=== PATIENT | male | born 2005 | race Caucasian/White ===

== ENCOUNTER 2024-03-14 19:53 | Emergency (ER) | payer OTHER, SELFPAY ==
[2024-03-14 19:54] VITALS: BP 140/82
[2024-03-14 20:03] VITALS: BP 143/92
[2024-03-14] MEDS: SOLU-MEDROL PF 125 MG IV (20:24)
[2024-03-14] MEDS: ADRENALIN 0.299999999999999989 MG IM (20:24)
[2024-03-14] MEDS: PEPCID 20 MG IV (20:24)
[2024-03-14 20:35] LABS: % Eosinophils 6.4 % (0-6); % Immature Granulocytes 0.2 % (0-0.5); % Lymphocytes 29.6 % (20.5-51.1); % Neutrophils 53.8 % (42.2-75.2); Absolute Basophils 0.1 10^3/uL (0-0.2); Absolute Eosinophils 0.6 10^3/uL (0-0.7); Absolute Lymphocytes 2.7 10^3/uL (1.2-3.4); Absolute Monocytes 0.8 10^3/uL (0.1-0.6); Absolute Neutrophils 4.9 10^3/uL (1.4-6.5); Hematocrit 40.7 % (39.0-52.0); Hemoglobin 14.4 g/dL (13.0-18.0); Mean Corp Hgb Conc. 35.4 g/dL (33.0-37.0); Mean Corpuscular Volume 82.1 fL (80.0-94.0); Mean Platelet Volume 13.2 fL (7.4-10.4); Nucleated Red Blood Cells % 0 % (-); Platelet Count 81 10^3/uL (130-400); Red Blood Cell Count 4.96 10^6/uL (4.70-6.10); Red Cell Dist. Width 12.6 % (11.5-14.5); White Blood Cell Count 9.1 10^3/uL (4.8-10.8)
--- NOTE | 2024-03-14 20:54 | ED.GENMED ---
History of Present Illness
General
Chief Complaint: Allergic Reaction
Source: patient
Exam Limitations: none
Time Seen by Provider: 03/14/24 20:12
Nursing documentation reviewed up to this point in time: agreed with
Travel History
Have you had any contact with someone who has COVID-19?: No
Do you have any symptoms of coronavirus? Fever > 100 degrees, chills, cough, shortness of breath, sore throat, loss of taste or smell, muscle aches, or headache?: No
History of Present Illness
History of Present Illness:
18-year-old male with no significant chronic medical issues presents to the emergency room for evaluation of allergic reaction. 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 He says that he had some benoit tonight and it unknowingly contained
some coconut. He says that shortly after ingestion (which was at around 6:15 PM) he began to have some pruritus, hives, swelling of his lips and sensation of swelling in his throat. He says he had an episode of vomiting has had some
nausea/epigastric discomfort since. He denies any shortness of breath or wheezing. He says that he took Benadryl 50 mg shortly after he realized he was having a reaction and symptoms have improved slightly but not resolved. Came to the emergency
room for assessment. He does have access to an EpiPen but did not administer.
Review of Systems
Review of Systems
All Other Systems: ROS reviewed and negative except as documented in HPI and ROS
EENT: Reports other (Throat swelling, lip swelling)
Respiratory: Denies cough or trouble breathing
Cardiac: Denies chest pain
ABD/GI: Reports abdominal pain, nausea and vomiting
: Denies flank pain
Musculoskeletal: Denies neck pain or back pain
Skin: Reports itching and rash
Neurological: Denies dizzy or headache
Phy Exam
Physical Exam
Physical Exam:
General: Awake, alert; no acute distress
Head: Normocephalic, atraumatic
Eyes: Conjunctiva normal; some slight periorbital edema
Throat: Airway intact, handling secretions, no tongue swelling, slight swelling of the upper lip, no uvular swelling, no stridor
Neck: Trachea midline
Lungs: Clear to auscultation bilaterally, no wheezing, rales, rhonchi
Heart: Regular rate and rhythm, no murmurs, gallops, or rubs
Abd: Soft, non distended, nontender
Neuro: No gross deficits
Skin: Occasional scattered hives
Extremities: Warm and well-perfused
Scores
Heart Failure Risk
Heart Failure Risk Score: Not Applicable
Heart Score for Chest Pain Patients
STEMI patient?: Not applicable
Withdrawal Assessment of Alcohol
Withdrawal Assessment Completed?: Not applicable
Course
Orders/Labs/Results
Orders:
Orders
03/14/24 20:13
Diphenhydramine [Benadryl] 25 mg IV NOW STA
EPINEPHrine PF [Adrenalin] 0.3 mg IM NOW STA
Famotidine [Pepcid] 20 mg IV NOW STA
MethylPREDNISolone PF [Solu-Medrol Pf] 125 mg IV NOW STA
03/14/24 20:23
Complete Blood Count/With Diff Urgent
Comprehensive Metabolic Panel Urgent
Abnormal Lab Results
03/14/24
20:23
Plt Count 81 L 10^3/uL
(130-400)
MPV 13.2 H fL
(7.4-10.4)
Absolute Monos (auto) 0.8 H 10^3/uL
(0.1-0.6)
Eosinophils % 6.4 H %
(0-6)
03/14/24 20:23
03/14/24 20:23
Vital Signs
Initial and Last Documented VS:
Initial Vital Signs
Temp Pulse Resp BP Pulse Ox
36.6 C 74 22 140/82 98
03/14/24 19:54 06/17/24 19:54 03/14/24 19:54 03/14/24 19:54 03/14/24 19:54
Last Documented Vital Signs
Temp Pulse Resp BP Pulse Ox
36.6 C 62 19 143/92 98
03/14/24 19:54 03/14/24 21:00 03/14/24 21:00 03/14/24 20:03 03/14/24 21:00
MDM/Problems Addressed
Differential Diagnosis Includes:
Anaphylaxis, angioedema
MDM/Problems Addressed:
18-year-old male presents for evaluation of allergic reaction after unknowingly ingesting coconut to which he has a known allergy. Took Benadryl prior to arrival which helped symptoms slightly. Ingestion occurred at 6:15 PM. Symptoms include
hives/pruritus, puffiness of the lips and eyes, sensation of throat swelling, GI symptoms. No wheezing or shortness of breath. Vital signs are normal. Exam as above. Will give IM epinephrine. Will treat with steroid, Pepcid. Will hold on
additional Benadryl given he took a dose prior to arrival. Monitor closely reassess after the above.
Symptoms resolved with treatment as above. Will monitor here in the emergency room for rebound symptoms.
Patient now 4 hours removed from ingestion and has not had any rebound symptoms, symptoms completely resolved. Lungs clear to auscultation, no lip or facial swelling, tongue swelling. Abdomen benign. At this point he is stable for discharge will
start on a short course of prednisone, provided refill for EpiPen. Patient very happy with this plan and in fact is requesting discharge. All questions answered.
*Pulse Oximetry
Patient hypoxic: no
*Critical Care Note
Total Time (30-74mins, 75-104mins- exclusive of procedures): Not Applicable
Data Reviewed
Source: patient
ED Attending Note
-
Portions of this chart may have been created with voice recognition software.� Occasional wrong word or��sound alike� substitutions may have occurred due to the inherent limitations of voice recognition software.
Discharge Plan
Departure
Patient Disposition: Home (Routine Discharge)
Date of Disposition: 03/14/24
Time of Disposition: 22:06
Patient with high blood pressure during this ER visit?: No
Discharge Problem:
Allergic reaction, Thrombocytopenia
Instructions: Anaphylaxis
Prescriptions:
New
epinephrine [EpiPen 2-Pako] 0.3 mg/0.3 mL auto-injector
0.3 mg IM ONCE Qty: 2 0RF
prednisone 50 mg tablet
50 mg PO DAILY Qty: 4 0RF
Activity Restrictions/Additional Instructions:
Your platelets were found to be low in the emergency room on blood work. You should talk to your primary doctor to follow-up on this finding.
Thank you for visiting the Emergency Department at [facility].
1. Please schedule a follow up appointment as directed. Call first thing tomorrow morning to make an appointment.
2. If indicated, please take your medications as instructed and indicated on discharge paperwork.
3. If any of your symptoms do not improve, or persist, or become more severe within 6-12 hours, please return to the emergency department for further care.
4. Please return to the emergency department if you develop a headache, neck pain/stiffness, fever greater than 100.4F, chest pain, shortness of breath, persistent nausea, vomiting, slurred speech, difficulty walking, numbness/tingling, weakness,
signs of infection or any other symptoms that are worrisome to you.
Please call [phone] if you have any questions.
Interventions
Interventions:
*Risk Screen - Suicide Last Done: 03/14/24 19:54
*Neglect/Abuse Screening Last Done: 03/14/24 19:54
ED- Cardiac Assessment Last Done: 03/14/24 20:04
ED- Pulmonary Assessment Last Done: 03/14/24 20:04
ED-Skin Assessment Last Done: 03/14/24 20:04
Discharge Date and Time
Print Language: CANADIAN
[2024-03-14 21:00] VITALS: BP 131/57
[2024-03-14 21:02] LABS: ALT (SGPT) 24 U/L (0-50); AST (SGOT) 41 U/L (17-59); Albumin 4.5 g/dl (3.5-5.0); Alkaline Phosphatase 77 U/L (38-126); Blood Urea Nitrogen 16 mg/dl (9-20); Calcium 9.5 mg/dl (8.4-10.2); Carbon Dioxide 24 mmol/L (22-30); Chloride 102 mmol/L (98-107); Glucose 91 mg/dl (70-99); Potassium 3.6 mmol/L (3.5-5.1); Sodium 136 mmol/L (135-145); Total Protein 7.5 g/dl (6.3-8.2); eGFR > 60.00
[2024-03-14 21:37] LABS: Total Bilirubin 0.7 mg/dl (0.2-1.3)
[2024-03-14 22:00] VITALS: BP 136/73
== END 2024-03-14 22:32 | disposition home or self-care (01) ==
LOC: EMR 19:53
PROVIDERS: EMERGENCY PHYSICIAN Emergency Medicine
DX: T78.1XXA Other adverse food reactions, not elsewhere classified, initial encounter (principal); R22.0 Localized swelling, mass and lump, head; R11.2 Nausea with vomiting, unspecified; R10.9 Unspecified abdominal pain; L50.0 Allergic urticaria; D69.6 Thrombocytopenia, unspecified; Z86.16 Personal history of COVID-19; Z91.010 Allergy to peanuts; Z88.0 Allergy status to penicillin; Z91.018 Allergy to other foods
CPT/HCPCS: 99284; 96374; 96375; 96372; 80053; 85025